=== PATIENT | female | born 1985 | race Caucasian/White ===

== ENCOUNTER 2019-03-12 03:13 | Emergency (ER) | payer SELFPAY ==
[~2019-03-12] VITALS: Ht 149.9 cm; Wt 83.9 kg
[2019-03-12 03:28] VITALS: BP 165/98; PULSE 114; RESP 20; Ht 149.9 cm; Wt 83.9 kg
== END 2019-03-12 03:57 | disposition left against medical advice (07) ==
LOC: FTE 03:13
DX: Z53.21 Procedure and treatment not carried out due to patient leaving prior to being seen by health care provider (principal)

== ENCOUNTER 2019-03-25 18:15 | Emergency (ER) | payer OTHER ==
[~2019-03-25] VITALS: Ht 149.9 cm; Wt 81.8 kg
[2019-03-25 18:23] VITALS: Ht 149.9 cm; Wt 81.8 kg
--- NOTE | 2019-03-25 18:32 | ERD ---
ER Documentation Chief Complaint Chief Complaint HPI This is a 33-year-old woman brought in by EMS under [employer] custody for medical clearance she was pulled over and began crying. Officers brought her here for medical clearance, she denies suicidal homicidal ideation and had no trauma or injury. Patient does not provide any more explanation or detail as to why she is here upon my questioning. ROS All systems reviewed and are negative except as per history of present illness. Allergies Allergies: Coded Allergies: Unknown: Unable to obtain (Unverified , 03/12/19) PMhx/Soc History of anxiety and anemia History of Surgery: No Anesthesia Reaction: No Hx Neurological Disorder: No Hx Respiratory Disorders: No Hx Cardiac Disorders: No Hx Psychiatric Problems: Yes (BIPOLAR, DEPRESSION) Hx Miscellaneous Medical Probl: No Hx Alcohol Use: No Hx Substance Use: No Hx Tobacco Use: No Physical Exam Vitals Vital Signs Date Temp Pulse Resp B/P (MAP) Pulse Ox O2 O2 Flow FiO2 Time Delivery Rate 03/25/19 98.1 105 22 158/100 100 Room Air 18:37 (119) 03/25/19 98.1 107 22 158/100 100 18:23 (119) Per nurse's records Physical Exam Const: Anxious, crying, well-developed well-nourished, afebrile HEENT: No cervical spine tenderness or deformity, pink conjunctive a, moist mucous membranes Resp: Clear to auscultation bilaterally Cardio: Regular rate and rhythm, no murmurs Abd: Soft, non tender, non distended. No guarding or rigidity Skin: No petechiae or rashes, no abrasions or hematomas Ext: No cyanosis, or edema Neur: Awake and alert x3, moving all extremities, gait normal Psych: Anxious and tearful Procedures/MDM I examined the patient and provided reassurance, she had no complaints and is medically cleared and okay to book. Departure Diagnosis: Primary Impression: Encounter for medical clearance for patient hold Additional Impression: Acute anxiety Condition: Stable Patient Instructions: Anxiety Reaction, Custodial Clearance CORTNEY COLEMAN MD March 25, 2019 18:32
[2019-03-25 18:37] VITALS: BP 158/100; PULSE 105; RESP 22
== END 2019-03-25 18:50 | disposition home or self-care (01) ==
LOC: E/R 18:15
DX: F41.9 Anxiety disorder, unspecified (principal)
CPT/HCPCS: 99283

== ENCOUNTER 2019-04-08 00:09 | Emergency (ER) | payer SELFPAY ==
[~2019-04-08] VITALS: Ht 149.9 cm; Wt 83.2 kg
[2019-04-08 00:11] VITALS: BP 140/88; PULSE 121; RESP 22; Ht 149.9 cm; Wt 83.2 kg
== END 2019-04-08 01:00 | disposition left against medical advice (07) ==
LOC: FTE 00:09
DX: Z53.21 Procedure and treatment not carried out due to patient leaving prior to being seen by health care provider (principal)